=== PATIENT | female | born 1995 | race Hispanic/Latino ===

== ENCOUNTER 2022-03-11 18:19 | Inpatient (IN) | payer MEDICAID, SELFPAY ==
[2022-03-11 19:20] VITALS: BMI 24.4
[2022-03-11] MEDS ORDERED: NS w/ Oxytocin 30 units 500 ML ONE (19:31)
[2022-03-11] MEDS ORDERED: Penicillin G Potassium 5 MILL.UNITS VIAL ONE (19:31)
[2022-03-11] MEDS ORDERED: Ondansetron PF 4 MG/2 ML Vial IVP PRN ×2 (20:07→22:52)
[2022-03-11] MEDS ORDERED: hydrALAZINE 20 MG/ML VIAL SLOW IVP PRN ×2 (20:07→22:52)
[2022-03-11] MEDS ORDERED: Promethazine HCl 25 MG/ML VIAL IM PRN (20:07)
[2022-03-11] MEDS ORDERED: Carboprost 250 MCG/ML AMP IM PRN (20:07)
[2022-03-11] MEDS ORDERED: Methylergonovine 0.2 MG/ML VIAL IM PRN (20:07)
[2022-03-11] MEDS ORDERED: Ibuprofen 800 MG TAB PO PRN (20:07)
[2022-03-11] MEDS ORDERED: Diphenoxylate HCl/Atropine Tablet PO PRN (20:07)
[2022-03-11] MEDS ORDERED: Acetaminophen 500 MG TAB PO PRN (20:07)
[2022-03-11] MEDS ORDERED: Lidocaine 1% (PF) 30 ML VIAL SC PRN (20:07)
[2022-03-11] MEDS ORDERED: Misoprostol 200 MCG TAB PR PRN (20:07)
[2022-03-11] MEDS ORDERED: Misoprostol 100 MCG TAB VAG SCH (20:15)
[2022-03-11] MEDS ORDERED: NS w/ Oxytocin 30 units 500 ML IV SCH ×2 (20:15)
[2022-03-11] MEDS ORDERED: Lactated Ringer's 1,000 ML IV SCH (20:15)
[2022-03-11 20:57] LABS: Hemoglobin 9.8 g/dL (12.0-15.5); Mean Corpuscular HGB CONC 31.7 g/dL (32.0-36.0); Mean Corpuscular Hemoglobin 24.7 pg (27.0-33.0); Mean Corpuscular Volume 77.8 fl (81.6-98.3); Platelet Count 328 10x3/uL (150-450); RBC Distribution Width 14.2 % (11.5-14.5); Red Blood Cell (RBC) Count 3.97 10x6/uL (3.90-5.03); White Blood Cell (WBC) Count 14.9 10x3/uL (3.5-10.5)
[2022-03-11 21:27] LABS: SARS-CoV-2 NAA Rapid Test Not Detected (NotDetected)
[2022-03-11 21:28] LABS: HIV (1/2) Antibody/Antigen Non-Reactive (NonReactive); HIV 1/2 INDEX 0.16 S/CO (<1.00); Hep B Surf Ag Non-Reactive S/CO (NonReactive); Syphilis Antibody Nonreactive (Nonreactive); Syphilis Antibody Index 0.03 S/CO (<1.00 Non-Reactive)
[2022-03-11 21:30] LABS: HBSAg Index 0.14 S/CO (0-0.99)
[2022-03-11] MEDS ORDERED: Preparation H Ointment 28 GM TUBE PR PRN (22:52)
[2022-03-11] MEDS ORDERED: diphenhydrAMINE 25 MG CAP PO PRN (22:52)
[2022-03-11] MEDS ORDERED: Milk Of Magnesia 30 ML UDCUP PO PRN (22:52)
[2022-03-11] MEDS ORDERED: Bisacodyl 10 MG SUPP PR PRN (22:52)
[2022-03-11] MEDS ORDERED: Benzocaine-Menthol 82.5 ML CAN TOP PRN (22:52)
[2022-03-11] MEDS ORDERED: Boostrix 0.5 ML (Tdap) VIAL IM ONE (22:52)
[2022-03-11] MEDS ORDERED: Lanolin Ointment 7 GM TUBE TOP PRN (22:52)
[2022-03-12 05:07] LABS: #Basophils 0.1 10x3/uL (0.0-0.2); #Eosinphils 0.1 10x3/uL (0.0-0.5); #Monocytes 1.3 10x3/uL (0.0-1.1); #Neutrophils 15.5 10x3/uL (1.5-8.4); %Basophils 0.3 % (0.0-2.0); %Eosinophils 0.5 % (0.0-6.0); %Lymphocytes 12.5 % (18.0-47.0); %Monocytes 6.4 % (0.0-10.0); %Neutrophils 79.5 % (40.0-75.0); Hemoglobin 9.6 g/dL (12.0-15.5); Mean Corpuscular HGB CONC 31.8 g/dL (32.0-36.0); Mean Corpuscular Hemoglobin 24.4 pg (27.0-33.0); Mean Corpuscular Volume 76.8 fl (81.6-98.3); Mean Platelet Volume 9.7 fl (7.4-10.4); Platelet Count 264 10x3/uL (150-450); RBC Distribution Width 13.9 % (11.5-14.5); Red Blood Cell (RBC) Count 3.93 10x6/uL (3.90-5.03); White Blood Cell (WBC) Count 19.5 10x3/uL (3.5-10.5)
[2022-03-12] MEDS: Ibuprofen 800 MG TAB PO SCH ×4 (05:44→21:55)
[2022-03-12] MEDS: Ferrous Sulfate 325 MG TAB PO SCH ×2 (09:08→21:55)
[2022-03-12] MEDS: Docusate 100 MG CAP PO SCH ×2 (09:08→21:56)
[2022-03-12] MEDS: Prenatal Vitamin 1 TAB PO SCH (09:08)
[2022-03-12 13:18] LABS: HBSAB Concentration Less than 8.00 mIU/mL; Hep B Surf AB Non-Reactive (NonReactive)
[2022-03-13] MEDS: Ibuprofen 800 MG TAB PO SCH (05:38)
[2022-03-13 07:57] VITALS: BP 117/67; TEMP 98
[2022-03-13] MEDS: Prenatal Vitamin 1 TAB PO SCH (08:05)
[2022-03-13] MEDS: Docusate 100 MG CAP PO SCH (08:05)
[2022-03-13] MEDS: Ferrous Sulfate 325 MG TAB PO SCH (08:05)
[2022-03-13] MEDS ORDERED: Measles/Mumps/Rubella 10 MCG/0.5 ML VIAL SC ONE (10:38)
== END 2022-03-13 12:45 | disposition home or self-care (01) | DRG 807 ==
LOC: CSHLD/OP 18:19 → CSHLD 19:40 → CSHPP 22:43
PROVIDERS: ADMIT Obstetrics & Gynecology; ATTEND Obstetrics & Gynecology
PROC: 10E0XZZ Delivery of Products of Conception, External Approach (ICD-10-PCS; principal; 2022-03-11)
DX: O60.14X0 Preterm labor third trimester with preterm delivery third trimester, not applicable or unspecified (principal); Z37.0 Single live birth; Z3A.36 36 weeks gestation of pregnancy; Z20.822 Contact with and (suspected) exposure to COVID-19; O69.81X0 Labor and delivery complicated by cord around neck, without compression, not applicable or unspecified
CPT/HCPCS: 36415; 85025; 85027; 86706; 86762; 86780; 86850; 86900; 86901; 87340; 87389; 90707; 90715; 99285; J2540; J2590; J7120; U0002